=== PATIENT | female | born 1985 | race Caucasian/White ===

== ENCOUNTER 2016-10-26 15:01 | Emergency (ER) | payer SELFPAY ==
[2016-10-26 15:38] VITALS: BP 119/72
--- NOTE | 2016-10-26 15:45 | UC ---
Throat Pain/Nasal Mickey HPI - HPI Summary HPI Summary: 2 days of sinus congestion and nasal drainage, believes she had a fever last night - History of Current Complaint Chief Complaint: UCRespiratory Stated Complaint: SINUS CONGESTION Time Seen by Provider: 10/26/16 15:38 Hx Obtained From: Patient Hx Last Menstrual Period: September 04 ?: No Onset/Duration: Gradual Onset, Lasting Days - 3, Still Present Severity: Mild Cough: None Associated Signs & Symptoms: Positive: Sinus Discomfort, Nasal Discharge, Fever - last night - Allergies/Home Medications Allergies/Adverse Reactions: Allergies Allergy/AdvReac Type Severity Reaction Status Date / Time Amoxicillin Allergy Severe Rash Verified 10/26/16 15:38 Sulfamethoxazole Allergy Rash Verified 10/26/16 15:38 w/Trimethoprim [From Bactrim] ENVIRONMENTAL Allergy SNEEZY,RUNNY Uncoded 10/26/16 15:38 NOSE, ITCHY EYES Home Medications: Home Medications Multiple Vitamins W/ Minerals [Multivitamin Adults] 10/26/16 [History] PMH/Surg Hx/FS Hx/Imm Hx Previously Healthy: No Cardiovascular History Of: Denies: Cardiac Disorders Respiratory History Of: Reports: Bronchitis - NONE NOW Psychological History Of: Reports: Depression - Surgical History Surgical History: Yes Surgery Procedure, Year, and Place: BREAST AUGMENTATION, [place] - Family History Known Family History: Positive: None Family History: denies cardiovascular disease in family lineage - Social History Occupation: Employed Full-time - hairdresser Lives: With Family Alcohol Use: Occasionally Substance Use Type: None Smoking Status (MU): Former Smoker Amount Used/How Often: SOCIALLY Have You Smoked in the Last Year: No When Did the Patient Quit Smoking/Using Tobacco: 07/2013 - Immunization History Most Recent Influenza Vaccination: 07/24/15 Most Recent Tetanus Shot: 10/01/15 Most Recent Pneumonia Vaccination: never Review of Systems Constitutional: Fever - last night 10/25/16 Skin: Negative Eyes: Negative ENT: Nasal Discharge Respiratory: Negative Cardiovascular: Negative Gastrointestinal: Negative Genitourinary: Negative Motor: Negative Neurovascular: Negative Musculoskeletal: Negative Neurological: Negative Psychological: Negative All Other Systems Reviewed And Are Negative: Yes Physical Exam Triage Information Reviewed: Yes Appearance: Well-Appearing, No Pain Distress, Well-Nourished Vital Signs: Initial Vital Signs Temp 99.2 F 10/26/16 15:31 Pulse 98 10/26/16 15:31 Resp 18 10/26/16 15:31 BP 119/72 10/26/16 15:31 Pulse Ox 95 10/26/16 15:31 Vital Signs Reviewed: Yes Eye Exam: Normal Eyes: Positive: Conjunctiva Clear ENT Exam: Normal ENT: Positive: Normal ENT inspection, Hearing grossly normal, Pharynx normal, Nasal congestion, Nasal drainage, TMs normal. Negative: Tonsillar swelling, Tonsillar exudate, Trismus, Muffled/hoarse voice Dental Exam: Normal Neck exam: Normal Neck: Positive: Supple, Nontender, No Lymphadenopathy Respiratory Exam: Normal Respiratory: Positive: Chest non-tender, Lungs clear, Normal breath sounds, No respiratory distress Cardiovascular Exam: Normal Cardiovascular: Positive: RRR, No Murmur, Pulses Normal, Brisk Capillary Refill Musculoskeletal Exam: Normal Musculoskeletal: Positive: Strength Intact, ROM Intact, No Edema Neurological Exam: Normal Neurological: Positive: Alert, Muscle Tone Normal Psychological Exam: Normal Skin Exam: Normal Throat Pain/Nasal Course/Dx - Course Assessment/Plan: increase fluids, 3 days of afrin nasal spray tylenol, ibuprofen sudafed PRN, follow and recheck with pcp - Differential Dx/Diagnosis Differential Diagnosis/HQI/PQRI: Influenza, Otitis Media, Pharyngitis, Sinusitis , URI Provider Diagnoses: URI, Viral illness Discharge - Discharge Plan Condition: Stable Disposition: HOME Patient Education Materials: Oxymetazoline (Into the nose), Upper Respiratory Infection (ED), Rhinosinusitis (ED), Cold Symptoms (ED), How to Use Nasal Evart (ED) Referrals: [facility] [Outside] - If Needed
== END 2016-10-26 16:03 | disposition home or self-care (01) ==
LOC: UCEAST 15:01
DX: J06.9 Acute upper respiratory infection, unspecified (principal); B34.9 Viral infection, unspecified; Z88.0 Allergy status to penicillin; Z88.2 Allergy status to sulfonamides; Z87.891 Personal history of nicotine dependence
CPT/HCPCS: 99211; G0463

== ENCOUNTER 2016-12-27 21:10 | Emergency (ER) | payer BC ==
[2016-12-27 21:22] VITALS: BP 129/80
--- NOTE | 2016-12-27 22:03 | UC ---
Upper Extremity HPI - HPI Summary HPI Summary: The patient comes in today for: 1. Right arm pain, cramp, rash: Onset: She noticed this when she woke up today this morning. Palliative/provocative: Nothing makes her symptoms better or worse except carrying her daughter. Quality: Crampy pain. Region/radiation: Right arm--just upper. Severity: 7/10 Time: Constant. Associated symptoms: Bleeding/clotting disorders: No clot in the past. No catheter in the right arm. Previous treatment: None. Previous illness: NOne. * - History of Current Complaint Chief Complaint: UCUpperExtremity Stated Complaint: ARM PAIN Time Seen by Provider: 12/27/16 21:57 Hx Obtained From: Patient Hx Last Menstrual Period: 12/11/16 ?: No - Allergies/Home Medications Allergies/Adverse Reactions: Allergies Allergy/AdvReac Type Severity Reaction Status Date / Time Amoxicillin Allergy Severe Rash Verified 10/26/16 15:38 Sulfamethoxazole Allergy Rash Verified 10/26/16 15:38 w/Trimethoprim [From Bactrim] ENVIRONMENTAL Allergy SNEEZY,RUNNY Uncoded 10/26/16 15:38 NOSE, ITCHY EYES Home Medications: Home Medications Aspirin [Aspirin 81 MG TAB] 81 mg PO DAILY 12/27/16 [History Confirmed 12/27/16] Azithromyxin RADHA (NF) [Z-Radha (Zithromax) 250 mg tabs #6] 12/27/16 [History] Letrozole (NF) [Femara (NF)] 5 mg PO DAILY 12/27/16 [History Confirmed 12/27/16] Metformin HCl [Glucophage] 500 mg PO BID 12/27/16 [History Confirmed 12/27/16] Naltrexone 3 mg PO BEDTIME 12/27/16 [History Confirmed 12/27/16] Vitamins 1 tab PO DAILY 12/27/16 [History Confirmed 12/27/16] Progesterone SUPP (NF) [Endometrin SUPP (NF)] 1 supp VAGINAL BID 12/27/16 [ History Confirmed 12/27/16] predniSONE TAB* [Deltasone TAB*] 1 tab PO DAILY 12/27/16 [History Confirmed 12/10] PMH/Surg Hx/FS Hx/Imm Hx Previously Healthy: No - She is going to fertility clinic. Endocrine History Of: Denies: Diabetes, Thyroid Disease, Hyperthyroidism, Hypothyroidism, Dyslipidemia Cardiovascular History Of: Denies: Cardiac Disorders, Hypertension, Pacemaker/ICD, Myocardial Infarction , Congestive Heart Failure, Atrial Fibrillation, Deep Vein Thrombosis, Bleeding Disorders Respiratory History Of: Denies: COPD, Asthma, Bronchitis, Pneumonia, Pulmonary Embolism GI/ History Of: Denies: Gastroesophageal Reflux, Ulcer, Gastrointestinal Bleed, Gall Bladder Disease, Kidney Stones, Diverticulitis, Renal Disease, Urosepsis Neurological History Of: Denies: TIA, CVA, Dementia, Seizures, Migraine Psychological History Of: Reports: Depression Denies: Anxiety, Bipolar Disorder, Schizophrenia, Post Traumatic Stress Disorder Cancer History Of: Denies: Lung Cancer, Colorectal Cancer, Breast Cancer, Prostate Cancer, Cervical Cancer Other History Of: Negative For: HIV, Hepatitis B, Hepatitis C, Anticoagulant Therapy - Surgical History Surgical History: Yes Surgery Procedure, Year, and Place: BREAST AUGMENTATION, [place]. D&C - Family History Known Family History: Negative: Cardiac Disease, Hypertension Family History: denies cardiovascular disease in family lineage - Social History Occupation: Employed Full-time Alcohol Use: None Substance Use Type: None Smoking Status (MU): Former Smoker Amount Used/How Often: SOCIALLY Have You Smoked in the Last Year: No When Did the Patient Quit Smoking/Using Tobacco: 07/2013 - Immunization History Most Recent Influenza Vaccination: season Most Recent Tetanus Shot: 10/01/15 Most Recent Pneumonia Vaccination: never Review of Systems Constitutional: Negative Skin: Rash Eyes: Negative ENT: Negative Respiratory: Negative Cardiovascular: Negative Gastrointestinal: Negative Genitourinary: Negative Motor: Negative Musculoskeletal: Arthralgia All Other Systems Reviewed And Are Negative: Yes Physical Exam Triage Information Reviewed: Yes Appearance: Well-Appearing, No Pain Distress, Well-Nourished Vital Signs: Initial Vital Signs Temp 99.4 F 12/27/16 21:15 Pulse 92 12/27/16 21:15 Resp 18 12/27/16 21:15 BP 129/80 12/27/16 21:15 Pulse Ox 99 12/27/16 21:15 Vital Signs Reviewed: Yes Eyes: Positive: Conjunctiva Clear. Negative: Discharge ENT: Positive: Hearing grossly normal. Negative: Pharyngeal erythema, Nasal congestion, Nasal drainage, TM bulging, TM dull, TM red, Tonsillar swelling, Tonsillar exudate Dental: Negative: Gross Decay/Caries @, Dental Fracture @ Neck: Positive: Supple, Nontender, No Lymphadenopathy. Negative: Nuchal Rigidity Respiratory: Positive: Lungs clear, No respiratory distress, No accessory muscle use. Negative: Crackles, Wheezing Cardiovascular: Positive: RRR, No Murmur Abdomen Description: Positive: Nontender, No Organomegaly, Soft. Negative: Distended, Guarding Musculoskeletal: Positive: Strength Intact, ROM Intact, No Edema Neurological: Positive: Alert, Muscle Tone Normal Psychological: Positive: Age Appropriate Behavior, Consolable Skin: Positive: Other. Negative: breakdown - The patient had a 7-8 mm well- rounded bluish lesion of the upper right arm. It did not madiha. There was no nodularity to it. There was no venous congestion of the right arm. The veins of the back of the right hand were the same as the left. The mid-arm circumference was 30.5 cm on the right (22 cm up from the olecranon with the arm bent 90 degrees). And at the same distance from the olecranon, the left arm was 29.5. There as no induration. The bluish lesion was soft. Upper Extremity Course/Dx - Differential Dx/Diagnosis Provider Diagnoses: Venous fisher, right upper arm vs contusion. Discharge - Discharge Plan Condition: Stable Disposition: HOME Referrals: Non Staff,Doctor [Primary Care Provider] - 4 Days (Please follow up with your primary care provider or fertility provider later this week for re-evaluation. If you get worse (increasing swelling of the arm, more prominent veins), please go to the ER for re-evaluation.)
== END 2016-12-27 22:37 | disposition home or self-care (01) ==
LOC: UCEAST 21:10
DX: L98.8 Other specified disorders of the skin and subcutaneous tissue (principal); Z88.1 Allergy status to other antibiotic agents; Z88.2 Allergy status to sulfonamides; Z87.891 Personal history of nicotine dependence
CPT/HCPCS: 99211; G0463

== ENCOUNTER 2017-09-24 08:37 | Inpatient (IN) | payer BC ==
[2017-09-24] MEDS ORDERED: Oxytocin in LR* 20 UNITS/1,000 ML BAG IVPB SCH ×2 (09:00→17:00)
[2017-09-24 09:57] LABS: ABS Basophils 0.1 10^3/ul (0-0.2); ABS Eosinophils 0.1 10^3/ul (0-0.6); ABS Lymphocytes 1.6 10^3/ul (1.0-4.8); ABS Monocytes 0.8 10^3/ul (0-0.8); ABS Neutrophils 8.2 10^3/ul (1.5-7.7); ABS Nucleated RBC 0 10^3/ul; Eosinophil % 0.6 % (0-6); Hematocrit 29 % (35-47); Hemoglobin 9.8 g/dl (12.0-16.0); Lymphocyte % 14.6 % (25-47); Mean Corpuscular HGB Conc 34 g/dl (31-36); Mean Corpuscular Hemoglobin 30 pg (27-31); Mean Corpuscular Volume 89 fL (80-97); Mean Platelet Volume 8 um3 (7.4-10.4); Nucleated Red Blood Cells % 0; Platelet Count 212 10^3/ul (150-450); Red Blood Count 3.25 10^6/ul (4.0-5.4); Red Cell Distribution Width 15 % (10.5-15); White Blood Count 10.7 10^3/ul (3.5-10.8)
[2017-09-24] MEDS ORDERED: OBEPIDURAL* 250 ML EPIDURAL ONE (12:50)
[2017-09-24] MEDS ORDERED: fentaNYL* 50 MCG/ML 2 ML VIAL (100 MCG VIAL) ONE (13:06)
[2017-09-24] MEDS ORDERED: Sodium Citrate/Citric Acid* 15 ML UDC PO PRN (13:51)
[2017-09-24] MEDS ORDERED: Phenylephrine IV* 40 MCG/ML 10 ML SYRINGE IV PUSH PRN ×2 (13:51)
[2017-09-24] MEDS ORDERED: Famotidine TAB* 20 MG PO PRN (13:51)
[2017-09-24] MEDS ORDERED: OBEPIDURAL* 250 ML EPIDURAL SCH (14:00)
[2017-09-24] MEDS ORDERED: Acetaminophen TAB* 325 MG PO PRN (16:15)
[2017-09-24] MEDS ORDERED: Dibucaine 1% 28.35 GM TUBE PR PRN (16:15)
[2017-09-24] MEDS ORDERED: Witch Hazel PAD* JAR TOPICAL PRN (16:15)
[2017-09-24] MEDS ORDERED: RHO D Immune Globulin (HUMAN)* 300 MCG = 1,500 I.U. INJ IM ONE (16:15)
[2017-09-24] MEDS ORDERED: Glycerin ADULT SUPP PR PRN (16:15)
[2017-09-24] MEDS ORDERED: Simethicone TAB* 80 MG TAB.CHEW PO SCH (17:30)
[2017-09-24] MEDS: Docusate CAP* 100 MG PO SCH (20:07)
[2017-09-25 06:36] LABS: ABS Basophils 0 10^3/ul (0-0.2); ABS Eosinophils 0.1 10^3/ul (0-0.6); ABS Lymphocytes 1.7 10^3/ul (1.0-4.8); ABS Monocytes 0.9 10^3/ul (0-0.8); ABS Neutrophils 6.5 10^3/ul (1.5-7.7); ABS Nucleated RBC 0.01 10^3/ul; Eosinophil % 0.6 % (0-6); Hematocrit 26 % (35-47); Hemoglobin 8.8 g/dl (12.0-16.0); Lymphocyte % 18.7 % (25-47); Mean Corpuscular HGB Conc 34 g/dl (31-36); Mean Corpuscular Hemoglobin 30 pg (27-31); Mean Corpuscular Volume 89 fL (80-97); Mean Platelet Volume 8 um3 (7.4-10.4); Nucleated Red Blood Cells % 0.1; Platelet Count 180 10^3/ul (150-450); Red Blood Count 2.94 10^6/ul (4.0-5.4); Red Cell Distribution Width 15 % (10.5-15); White Blood Count 9.1 10^3/ul (3.5-10.8)
[2017-09-25] MEDS: Ibuprofen TAB* 600 MG PO PRN ×2 (08:35→18:36)
[2017-09-25] MEDS: Docusate CAP* 100 MG PO SCH ×3 (08:35→19:53)
[2017-09-25] MEDS: Ferrous Gluconate TAB* 324 MG TAB PO SCH ×2 (10:46→19:53)
[2017-09-26 08:16] VITALS: BP 120/62
[2017-09-26] MEDS: Ibuprofen TAB* 600 MG PO PRN (09:32)
[2017-09-26] MEDS: Docusate CAP* 100 MG PO SCH (09:32)
[2017-09-26] MEDS: Ferrous Gluconate TAB* 324 MG TAB PO SCH (09:32)
== END 2017-09-26 13:13 | disposition home or self-care (01) | DRG 560 ==
LOC: MCHOBOUT 08:37 → MCHOB 08:44
PROVIDERS: ADMIT Midwife; ATTEND Midwife
PROC: 10E0XZZ Delivery of Products of Conception, External Approach (ICD-10-PCS; principal; 2017-09-24)
PROC: 3E033VJ Introduction of Other Hormone into Peripheral Vein, Percutaneous Approach (ICD-10-PCS; 2017-09-24)
PROC: 10907ZC Drainage of Amniotic Fluid, Therapeutic from Products of Conception, Via Natural or Artificial Opening (ICD-10-PCS; 2017-09-24)
PROC: 0KQM0ZZ Repair Perineum Muscle, Open Approach (ICD-10-PCS; 2017-09-24)
DX: O48.0 Post-term pregnancy (principal); O41.03X0 Oligohydramnios, third trimester, not applicable or unspecified; O70.1 Second degree perineal laceration during delivery; O99.344 Other mental disorders complicating childbirth; O77.0 Labor and delivery complicated by meconium in amniotic fluid; O42.12 Full-term premature rupture of membranes, onset of labor more than 24 hours following rupture; F32.9 Major depressive disorder, single episode, unspecified; O90.81 Anemia of the puerperium; D64.9 Anemia, unspecified; Z3A.41 41 weeks gestation of pregnancy; Z37.0 Single live birth
CPT/HCPCS: 36415; 76815; 85025; 85461; 86850; 86900; 86901; A9270-GY; J2790; J3010

== ENCOUNTER 2018-11-23 20:25 | Emergency (ER) | payer SELFPAY ==
[2018-11-23 20:43] VITALS: BP 147/71
--- NOTE | 2018-11-23 20:50 | UC ---
Ear Complaint HPI - HPI Summary HPI Summary: Started w/ R ear pain last night w/ drainage including a greenish discoloration. did not use FB to scratch her ears. nO change in hearing. nothing makes it better/worse. denies fever, hull, mastoid tenderness. - History of Current Complaint Chief Complaint: UCEar Stated Complaint: EAR PAIN Time Seen by Provider: 11/23/18 20:38 Hx Obtained From: Patient Hx Last Menstrual Period: today Pain Intensity: 5 Pain Scale Used: 0-10 Numeric Aggravating Factors: Nothing Alleviating Factors: Nothing Associated Signs/Symptoms: Negative: Hearing Loss, Foreign Body Sensation, Trauma to Ear - Allergies/Home Medications Allergies/Adverse Reactions: Allergies Allergy/AdvReac Type Severity Reaction Status Date / Time amoxicillin Allergy Severe Rash Verified 11/23/18 20:44 sulfamethoxazole Allergy Severe Rash Verified 11/23/18 20:44 [From Bactrim] trimethoprim [From Bactrim] Allergy Severe Rash Verified 11/23/18 20:44 ENVIRONMENTAL Allergy SNEEZY,RUNNY Uncoded 11/23/18 20:44 NOSE, ITCHY EYES Home Medications: Home Medications Clindamycin HCl 1 tab PO BID 11/23/18 [History Confirmed 11/23/18] PMH/Surg Hx/FS Hx/Imm Hx Previously Healthy: Yes Other History Of: Negative For: HIV, Hepatitis B, Hepatitis C, Anticoagulant Therapy - Surgical History Surgical History: Yes Surgery Procedure, Year, and Place: BREAST AUGMENTATION, [place]. D&C - Family History Known Family History: Negative: Cardiac Disease, Hypertension Family History: denies cardiovascular disease in family lineage - Social History Alcohol Use: None Substance Use Type: None Smoking Status (MU): Former Smoker Amount Used/How Often: SOCIALLY Have You Smoked in the Last Year: No When Did the Patient Quit Smoking/Using Tobacco: 07/2013 - Immunization History Most Recent Influenza Vaccination: 07/05/17 Most Recent Tetanus Shot: 10/01/15 Most Recent Pneumonia Vaccination: never Review of Systems All Other Systems Reviewed And Are Negative: Yes Constitutional: Negative: Fever, Chills, Fatigue ENT: Positive: Ear Ache. Negative: Dental Pain, Sore Throat Physical Exam Triage Information Reviewed: Yes Appearance: Well-Appearing Vital Signs: Initial Vital Signs Temp 99 F 11/23/18 20:39 Pulse 89 11/23/18 20:39 Resp 15 11/23/18 20:39 BP 147/71 11/23/18 20:39 Pulse Ox 98 11/23/18 20:39 Vital Signs Reviewed: Yes ENT Exam: Other - no mastoid tendereness ENT: Positive: TMs normal - left, Other - R TM Supprative Ear Complaint Course/Dx - Course Course Of Treatment: R ear pain w/ complaint of otorrhea. no mastoid tenderness on exam or hull. ON exam appears to either be a ? microperf vs. severe OExterna near ear drum w/ drainage. of note pt is on clindamycin for tooth abscess. Plan is to include otic antibx. advised to return if not improving. - Differential Dx/Diagnosis Differential Diagnosis/HQI/PQRI: Mastoiditis, Otitis Externa, Otitis Media, Trauma Provider Diagnosis: Otitis externa Discharge - Sign-Out/Discharge Documenting (check all that apply): Patient Departure All imaging exams completed and their final reports reviewed: No Studies - Discharge Plan Condition: Good Disposition: HOME Prescriptions: Ofloxacin 0.3% (Ear Drop)* [Floxin 0.3% [email or web address] (Ear Drop)] 5 drop RIGHT EAR DAILY 7 Days #1 btl Patient Education Materials: Earache (ED) Referrals: No Primary Care Phys,NOPCP [Primary Care Provider] - Additional Instructions: if not improving please follow up with pcp - Billing Disposition and Condition Condition: GOOD Disposition: Home
== END 2018-11-23 21:05 | disposition home or self-care (01) ==
LOC: UCEAST 20:25
DX: H60.91 Unspecified otitis externa, right ear (principal); Z88.0 Allergy status to penicillin; Z88.2 Allergy status to sulfonamides; Z91.09 Other allergy status, other than to drugs and biological substances; Z88.1 Allergy status to other antibiotic agents; Z87.891 Personal history of nicotine dependence
CPT/HCPCS: 99212; G0463